=== PATIENT | female | born 1995 | race Caucasian/White ===

== ENCOUNTER 2018-02-23 14:28 | Outpatient (CLI) ==
--- NOTE | 2018-02-23 15:17 | DI ---
EXAM: Two views of the left tibia and fibula. History: Left lower leg trauma. Findings: No acute fracture or dislocation. No abnormal calcifications or radiopaque foreign bodies . Joint spaces are preserved. Subcutaneous edema of the left lower leg. Impression: No acute osseous abnormality. Subcutaneous edema
--- NOTE | 2018-02-23 15:17 | DI ---
EXAM: Three views of the left ankle. History: Left ankle pain and trauma. Findings: No acute fracture or dislocation. Joint spaces are preserved. No abnormal calcifications or radiopaque foreign bodies. Subcutaneous edema of the left lower leg. Impression: No acute osseous abnormality. Subcutaneous edema
== END 2018-02-23 14:29 | disposition home or self-care (01) ==
LOC: RAD 14:28
PROVIDERS: ATTEND Internal Medicine
DX: M79.605 Pain in left leg (principal); V86.99XA Unspecified occupant of other special all-terrain or other off-road motor vehicle injured in nontraffic accident, initial encounter